=== PATIENT | male | born 1990 | race Caucasian/White ===

== ENCOUNTER 2017-08-06 07:10 | Day surgery (SDC) | payer OTHER ==
[~2017-08-06] VITALS: Ht 177.8 cm; Wt 92.1 kg
[2017-08-06] MEDS ORDERED: IMITREX50 MG PO (07:14)
[2017-08-06] MEDS ORDERED: DOCUSATE SODIU250 MG PO (07:15)
[2017-08-06] MEDS ORDERED: MIRALAX17 GM PO (07:15)
[2017-08-06] MEDS ORDERED: LEXAPRO20 MG PO (07:15)
[2017-08-06] MEDS ORDERED: LACTULOSE10 GM/152 PO (07:16)
[2017-08-06] MEDS ORDERED: GABAPENTIN300 MG PO (07:16)
[2017-08-06] MEDS ORDERED: MELOXICAM7.5 MG PO (07:16)
[2017-08-06] MEDS ORDERED: DIPHENHYDRAMINE50 M1 PO (07:17)
--- NOTE | 2017-08-06 10:50 | NUR ---
08/06/17 1050 Zulema Koo 1039-PATIENT ARRIVED TO PACU ON 6L MASK O2 SAT 100% PATIENT NONAROUSABLE ORAL AIRWAY IN PLACE. RR EVEN. SR SCANT AMT OF SHADOWING ON LEFT FINGER DRESSING. ELEVATED ON PILLOW AND ICE APPLIED. 1045-PATIENT REACTIVE AROUSING EYES OPENING ORAL AIRWAY REMOVED 6L MASK O2 SAT 100% PATIENT RAISING LEFT HAND GUARDS AT BEDSIDE. PATIENT DROWSY.
--- NOTE | 2017-08-06 11:18 | NUR ---
PT IS BACK TO FROM PACU. HE IS ACCOMPANIED BY [facility]. PT IS VERY CONVERSTAIONAL, HE IS HAVING TO BE REPEATEDLY TOLD BY OFFICERS TO QUIET DOWN. PT IS REPORTING BURING PAIN IN HIS FINGER, BUT ALSO STATES THAT HIS HAND IS NUMB. HE IS EDUCATED TO KEEP HIS HAND RELAXED AND RESTED ON THE PILLOW. HE IS TOLERATING SIPS OF WATER AND EATING PUDDING. NO OTHER C/O'S AT THIS TIME. WILL REASSESS WITHIN THE HOUR.
[2017-08-06] MEDS ORDERED: ULTRAM50 MG PO (11:59)
--- NOTE | 2017-08-06 12:34 | NUR ---
1230-PATIENT DISCHARGED BACK TO [facility] WITH GUARDS. DISCHARGE INSTRUCTIONS REVIEWED. DENIES NAUSEA.
--- NOTE | 2017-08-07 13:22 | OR ---
[facility] [address] [place], [place] [address] Signed DATE OF OPERATION: 08/06/2017 SURGEON: Kapil Nelson MD PREOPERATIVE DIAGNOSIS: Malunion fracture, proximal phalanx, left long finger. POSTOPERATIVE DIAGNOSIS: Malunion fracture, proximal phalanx, left long finger. PROCEDURE: Osteotomy and internal fixation of proximal phalanx, left long finger. ANESTHESIA: General. SPECIMENS AND COMPLICATIONS: There were no specimens or complications. TOURNIQUET TIME: About 45 minutes. WHAT WAS DONE: The patient was taken to the operating room. After anesthesia was induced and airway secured, the patient's left upper extremity was positioned, prepped and draped in a routine sterile fashion. Arm was exsanguinated with an Esmarch bandage. Pneumatic tourniquet was inflated to 250 mmHg pressure. We then made a straight mid lateral incision on the radial aspect over the distal two-thirds of the proximal phalanx. Skin was divided sharply. Subcutaneous tissue was bluntly spread. Several tiny venules were coagulated with bipolar cautery. We then used a 15 blade simply to expose the lateral aspect of the proximal phalanx. After inspecting it fluoroscopically, we decided on a 6-hole 1.3 mm plate. We did clip off one of the holes and then positioned it, so we have two holes distally and one hole proximally. Again positioning under fluoroscopic control, we drilled through the bone and so we have a good fixation point distally. We then rotated the plate out of the way and then did a small radial closing wedge osteotomy through the neck of the proximal phalanx. We then closed the wedge, which corrected the angular deformity of the finger. We then held the osteotomy closed and secured it with additional screws, three proximally and two distally. This gave us a very solid construct in good alignment and good position. The position was checked fluoroscopically and thought to be excellent. The fixation was quite secure. The wound Electronically Signed By: KAPIL NELSON MD 08/07/17 1322 PATIENT NAME: KAYLIE HIGGINS OPERATIVE REPORT DATE OF : 88 REPORT #: [id number] PHYSICIAN: KAPIL NELSON MD PCP: STORM BATISTA MD REPORT IS CONFIDENTIAL AND NOT TO BE RELEASED WITHOUT AUTHORIZATION [facility] [address] [place] [id number] Signed was gently irrigated and closed in a standard fashion and a sterile dressing applied. He was placed in a dorsal splint, awakened and taken to the recovery room where he arrived in stable condition. Counts were correct and antibiotic protocols were followed. MD SHANTE GonzalesB/MODL /[id number] Copies: ~ Electronically Signed By: KAPIL NELSON MD 08/07/17 1322 PATIENT NAME: KAYLIE HIGGINS OPERATIVE REPORT DATE OF : 88 REPORT #: [id number] PHYSICIAN: KAPIL NELSON MD PCP: STORM BATISTA MD REPORT IS CONFIDENTIAL AND NOT TO BE RELEASED WITHOUT AUTHORIZATION
== END 2017-08-06 12:30 | disposition home or self-care (01) ==
LOC: DS 07:10 → OPS 07:10 → DS 09:00 → OPS 09:00
PROVIDERS: Orthopaedic Surgery
PROC: 0PSV04Z Reposition Left Finger Phalanx with Internal Fixation Device, Open Approach (ICD-10-PCS; 2017-08-06)
PROC: 0PSV04Z Reposition Left Finger Phalanx with Internal Fixation Device, Open Approach (ICD-10-PCS; principal; 2017-08-06 09:00)
DX: S62.613P Displaced fracture of proximal phalanx of left middle finger, subsequent encounter for fracture with malunion (principal); J45.909 Unspecified asthma, uncomplicated; Z87.891 Personal history of nicotine dependence; Z87.820 Personal history of traumatic brain injury; Z79.899 Other long term (current) drug therapy
CPT/HCPCS: 01480; 73140; C1713; J0690; J1100; J1885; J2250; J2704; J3010; J7120